=== PATIENT | female | born 1945 | race Caucasian/White ===

== ENCOUNTER → 2016-02-26 | Outpatient (CLI) | payer MEDICARE | LOC: YCFC.O 08:41 | PROVIDERS: ATTEND Nurse Practitioner Family | DX: E11.9 Type 2 diabetes mellitus without complications (principal); E78.2 Mixed hyperlipidemia; Z13.29 Encounter for screening for other suspected endocrine disorder ==

== ENCOUNTER → 2016-08-25 | Outpatient (CLI) | payer MEDICARE | LOC: YCFC.O 07:04 | PROVIDERS: ATTEND Nurse Practitioner Family | DX: I10 Essential (primary) hypertension (principal); E11.9 Type 2 diabetes mellitus without complications; E78.2 Mixed hyperlipidemia ==

== ENCOUNTER → 2017-02-18 | Outpatient (CLI) | payer MEDICARE | END | disposition home or self-care (01) | LOC: LAB.O 06:55 | PROVIDERS: ATTEND Nurse Practitioner Family | DX: I10 Essential (primary) hypertension (principal); E11.9 Type 2 diabetes mellitus without complications ==

== ENCOUNTER → 2017-07-27 | Outpatient (CLI) | payer MEDICARE | LOC: YCFC.O 06:58 | PROVIDERS: ATTEND Nurse Practitioner Family | DX: I10 Essential (primary) hypertension (principal); E78.2 Mixed hyperlipidemia; E11.9 Type 2 diabetes mellitus without complications; E03.9 Hypothyroidism, unspecified ==

== ENCOUNTER → 2018-02-14 | Outpatient (CLI) | payer MEDICARE | LOC: YCFC.O 06:59 | PROVIDERS: ATTEND Nurse Practitioner Family | DX: E11.9 Type 2 diabetes mellitus without complications (principal); E78.2 Mixed hyperlipidemia; I10 Essential (primary) hypertension ==

== ENCOUNTER → 2018-08-16 | Outpatient (CLI) | payer MEDICARE | LOC: YCFC.O 06:56 | PROVIDERS: ATTEND Nurse Practitioner Family | DX: E78.2 Mixed hyperlipidemia (principal); E11.9 Type 2 diabetes mellitus without complications; I10 Essential (primary) hypertension ==

== ENCOUNTER → 2019-02-14 | Outpatient (CLI) | payer MEDICARE | LOC: YCFC.O 07:00 | PROVIDERS: ATTEND Nurse Practitioner | DX: E11.9 Type 2 diabetes mellitus without complications (principal); I10 Essential (primary) hypertension ==

== ENCOUNTER 2019-04-21 | Emergency (ER) | payer MEDICARE | END 2019-04-22 00:20 | disposition short-term general hospital (02) | DX: K57.32 Diverticulitis of large intestine without perforation or abscess without bleeding (principal); E87.6 Hypokalemia; N17.9 Acute kidney failure, unspecified; I71.4 Abdominal aortic aneurysm, without rupture; R11.2 Nausea with vomiting, unspecified; R19.7 Diarrhea, unspecified; E11.9 Type 2 diabetes mellitus without complications; J44.9 Chronic obstructive pulmonary disease, unspecified; K21.9 Gastro-esophageal reflux disease without esophagitis; Z85.828 Personal history of other malignant neoplasm of skin; Z87.891 Personal history of nicotine dependence | CPT/HCPCS: 71045; 74176; 80053; 81001; 82150; 82550; 82553; 83605; 83735; 83880; 84484; 85025; 85379; 85610; 85730; 87040; 87086; 94640; 94760; J1956; J3480; J3490; J7620 ==

== ENCOUNTER → 2019-05-04 | Outpatient (CLI) | payer MEDICARE | LOC: YCFC.O 10:30 | PROVIDERS: ATTEND Nurse Practitioner | DX: R60.0 Localized edema (principal); D72.829 Elevated white blood cell count, unspecified; Z48.01 Encounter for change or removal of surgical wound dressing ==

== ENCOUNTER → 2019-05-10 | Outpatient (CLI) | payer MEDICARE | LOC: YCFC.O 09:54 | PROVIDERS: ATTEND Family Medicine | DX: Z51.81 Encounter for therapeutic drug level monitoring (principal) ==

== ENCOUNTER → 2019-05-17 | Outpatient (CLI) | payer MEDICARE | LOC: BFHH 14:53 | PROVIDERS: ATTEND Family Medicine | DX: I10 Essential (primary) hypertension (principal); K57.20 Diverticulitis of large intestine with perforation and abscess without bleeding; Z43.3 Encounter for attention to colostomy ==

== ENCOUNTER → 2019-05-28 | Outpatient (CLI) | payer MEDICARE | LOC: BFHH 13:04 | PROVIDERS: ATTEND Family Medicine | DX: R79.89 Other specified abnormal findings of blood chemistry (principal) ==

== ENCOUNTER → 2019-08-20 | Outpatient (CLI) | payer MEDICARE | LOC: YCFC.O 06:51 | PROVIDERS: ATTEND Nurse Practitioner | DX: E11.9 Type 2 diabetes mellitus without complications (principal); D64.9 Anemia, unspecified; E78.5 Hyperlipidemia, unspecified ==

== ENCOUNTER 2019-11-28 14:43 | Emergency (ER) | payer MEDICARE ==
[2019-11-28] MEDS ORDERED: TETANUS,DIPHTHERIA,PERTUSSIS 1 EA SYG IM ONE (15:07)
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
[2019-11-28 15:20] VITALS: O2SAT 97
--- NOTE | 2019-11-28 15:45 | CT ---
TECHNIQUE: Spiral CT images were obtained of the cervical spine. Sagittal and coronal reconstructions were also performed. This exam was performed according to our departmental dose-optimization program, which includes automated exposure control, adjustment of the mA and/or kV according to patient size and/or use of iterative reconstruction technique. CLINICAL HISTORY PROVIDED: fall COMPARISON: None available. FINDINGS: Alignment: Straightening of the normal cervical lordosis. No acute subluxation. Fracture: No acute fracture. Degenerative Changes: Multilevel degenerative changes are present. Prevertebral / Paraspinal Soft Tissues: Heterogeneous thyroid gland. No acute findings. IMPRESSION: No acute fracture or subluxation. Electronically signed by: Denzel Moya MD 11/28/2019 3:44 PM CDT
--- NOTE | 2019-11-28 15:45 | RAD ---
EXAM DESCRIPTION: Sacrum Coccyx CLINICAL HISTORY: fall COMPARISON: None. TECHNIQUE: 3 views FINDINGS: The pelvis and sacrum are diffusely osteopenic. Mild degenerative changes are seen in the pubic symphysis and hips. Degenerative changes are also observed in the sacroiliac joints. I am unable to identify sacral or coccygeal fracture. Degenerative changes are observed in the lower lumbar spine. IMPRESSION: Degenerative changes are observed. No fracturing is detected. Electronically signed by: Dionicio Corea MD 11/28/2019 3:43 PM CDT
--- NOTE | 2019-11-28 15:48 | CT ---
EXAM DESCRIPTION: Head CLINICAL HISTORY: fall COMPARISON: None available TECHNIQUE: Non contrast cranial CT with multiplanar reconstructions. FINDINGS: A thin scalp contusion is present along the left posterior occipital region measuring 3.9 cm. No underlying calvarial fracture No acute intracranial hemorrhage, transcortical infarct, mass or mass effect. No intra or extra-axial fluid collection. No focal edema or midline shift. The ventricle and sulci are normal for age. No hydrocephalus. The mendez-white matter differentiation is intact. Mild periventricular and deep white matter hypodensities are likely related to chronic microvascular ischemic changes. No displaced calvarial fracture. The visualized paranasal sinuses and the mastoids are clear. IMPRESSION: 1. No acute intracranial abnormality. 2. Left posterior occiput scalp contusion. This exam was performed according to our departmental dose-optimization program, which includes automated exposure control, adjustment of the mA and/or kV according to patient size and/or use of iterative reconstruction technique. Electronically signed by: Dante Rodriguez DO 11/28/2019 3:47 PM CDT
[2019-11-28 15:59] VITALS: BP 120/64; TEMP 97.5
== END 2019-11-28 15:59 | disposition home or self-care (01) ==
LOC: ER 14:43
DX: S00.03XA Contusion of scalp, initial encounter (principal); S06.0X0A Concussion without loss of consciousness, initial encounter; E11.9 Type 2 diabetes mellitus without complications; K21.9 Gastro-esophageal reflux disease without esophagitis; W01.0XXA Fall on same level from slipping, tripping and stumbling without subsequent striking against object, initial encounter; Y92.89 Other specified places as the place of occurrence of the external cause

== ENCOUNTER → 2020-02-19 | Outpatient (CLI) | payer MEDICARE | LOC: YCFC.O 06:54 | PROVIDERS: ATTEND Nurse Practitioner | DX: E78.2 Mixed hyperlipidemia (principal); E11.9 Type 2 diabetes mellitus without complications; I11.0 Hypertensive heart disease with heart failure ==

== ENCOUNTER 2020-03-21 10:12 | Emergency (ER) | payer MEDICARE ==
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
[2020-03-21 10:43] VITALS: BP 177/92; TEMP 97.2; O2SAT 98
== END 2020-03-21 10:56 | disposition home or self-care (01) ==
LOC: ER 10:12
DX: R14.0 Abdominal distension (gaseous) (principal); Z93.3 Colostomy status; Z87.891 Personal history of nicotine dependence; Z79.899 Other long term (current) drug therapy